=== PATIENT | male | born 1980 ===

== ENCOUNTER 2016-11-28 08:31 | Inpatient (IN) | payer OTHER ==
[2016-11-28] MEDS ORDERED: Sodium Chloride 0.9% 1,000 ML IV ONE (08:46)
--- NOTE | 2016-11-28 08:47 | C.PDOC ---
History Of Present Illness Patient is a 36 y/o male brought to the emergency department by EMS for suspected drug abuse. Pt admits to drug abuse in the ER. Pt appears to be lethargic, but is easily arousable. Otherwise, pt denies any physical complaints at this time. (+) erythema of right LE noted. Pt admits for fall yesterday. Pt admits to using IV "dope" to his right lower leg but not recently. Time Seen by Provider: 11/28/16 08:44 Chief Complaint (Nursing): Substance Abuse History Per: Patient, EMS History/Exam Limitations: no limitations Onset/Duration Of Symptoms: Gradual Current Symptoms Are (Timing): Still Present Suicide/Self Injury Attempted (Context): None Severity: None Pain Scale Rating Of: 0 Associated Symptoms: denies: Suicidal Thoughts, Suicidal Plan Involuntary Hold By: None Recent travel outside of the [place]: No Additional History Per: EMS Past Medical History Reviewed: Historical Data, Nursing Documentation, Vital Signs Vital Signs: Last Vital Signs Temp 98.2 F 11/28/16 08:37 Pulse 84 11/28/16 10:34 Resp 14 11/28/16 10:34 BP 101/64 11/28/16 10:34 Pulse Ox 99 11/28/16 14:21 Family History: States: No Known Family Hx - Social History Hx Alcohol Use: Yes Hx Substance Use: Yes Review Of Systems Except As Marked, All Systems Reviewed And Found Negative. Constitutional: Negative for: Fever, Chills Cardiovascular: Negative for: Chest Pain, Palpitations Respiratory: Negative for: Cough, Shortness of Breath Gastrointestinal: Negative for: Nausea, Vomiting, Abdominal Pain Psych: Negative for: Suicidal ideation Physical Exam - Physical Exam Appears: Non-toxic, No Acute Distress, Other (lethargic) Skin: Warm, Dry, Other (ascending erythema from right foot to gonzales) Head: Atraumatic, Normacephalic Eye(s): bilateral: Normal Inspection, EOMI Nose: Normal Oral Mucosa: Moist Tongue: Normal Appearing Lips: Normal Appearing Throat: Normal Neck: Normal ROM, Supple Chest: Symmetrical, No Tenderness Cardiovascular: Rhythm Regular, No Murmur Respiratory: Normal Breath Sounds, No Rales, No Rhonchi, No Wheezing Gastrointestinal/Abdominal: Soft, No Tenderness Extremity: Tenderness (right foot and right ankle), No Calf Tenderness, Capillary Refill (< 2 sec.), No Deformity, Swelling (right lower leg) Pulses: Left Dorsalis Pedis: Normal, Right Dorsalis Pedis: Normal Neurological/Psych: Oriented x3, Normal Speech, Normal Cognition, Normal Motor, Normal Sensation ED Course And Treatment - Laboratory Results Result Diagrams: 11/28/16 09:19 11/28/16 09:19 Lab Interpretation: Abnormal (+ bands) O2 Sat by Pulse Oximetry: 99 (on RA) Pulse Ox Interpretation: Normal - Other Rad Right foot x-ray X-Ray: Interpreted by Me, Viewed By Me Interpretation: No fracture, or dislocation. Right ankle x-ray X-Ray: Interpreted by Me, Viewed By Me Interpretation: No fracture or dislocation. Progress Note: Labs, right ankle/foot x-ray ordered and reviewed. Pt was given IV fluids, and Vancomycin in the ER. - Physician Consult Information Physician Contacted: Margarito Desouza Jr. Outcome Of Conversation: Pt was seen in ED by Dr. Desouza, pt accepted for regular admission. ED OBSERVATION Date of observation admission: 11/28/16 Time of observation admission: 11:32 - Observation admission statement Patient is being placed in observation because:: opiod intoxication, pending sobriety - Goals of Observation Goals of observation are:: opiod intoxication, pending sobriety - Progress Note Progress Note: 11/28/16 11:34 opiod intoxication, pending sobriety pt is sleeping 11/28/16 13:[address] Desouza who accepted the pt. Disposition Counseled Patient/Family Regarding: Studies Performed, Diagnosis - Disposition Disposition: HOSPITALIZED Disposition Time: 13:45 Condition: STABLE - POA Present On Arrival: Falls Or Trauma - Clinical Impression Clinical Impression: Drug abuse, Cellulitis of right lower leg, Drug dependence - PA / PET TECHNOLOGIST / Resident Statement MD/DO has reviewed & agrees with the documentation as recorded. - Scribe Statement The provider has reviewed the documentation as recorded by the Dennyibshana Rios All medical record entries made by the Dennyibshana were at my direction and personally dictated by me. I have reviewed the chart and agree that the record accurately reflects my personal performance of the history, physical exam, medical decision making, and the department course for this patient. I have also personally directed, reviewed, and agree with the discharge instructions and disposition. Decision To Admit - Pt Status Changed To: Hospital Disposition Of: Inpatient - Admit Certification Admit to Inpatient:: After my assessment, the patient will require hospitalization for at least two midnights. This is because of the severity of symptoms shown, intensity of services needed, and/or the medical risk in this patient being treated as an outpatient. - InPatient: Physician Admission Certification: I certify that this patient requires 2 or more midnights of care for the following reason:: see notes - . Bed Request Type: Regular Admitting Physician: Margarito Desouza Jr. (accepted the pt) Patient Diagnosis: Drug abuse, Cellulitis of right lower leg, Drug dependence
[2016-11-28] MEDS ORDERED: Sodium Chloride 0.9% 1,000 ML ONE (08:52)
[2016-11-28 09:31] LABS: BASO % 0.2 % (0.0-2.0); EOS # 0.1 K/uL (0.0-0.7); HEMATOCRIT 37.7 % (35.0-51.0); LYMPH % 9.2 % (20.0-40.0); MEAN CELL VOLUME 92.2 fL (80.0-94.0); MEAN CORPUSCULAR HEMOGLOBIN 31.2 pg (27.0-31.0); MEAN CORPUSCULAR HGB CONC 33.8 g/dL (33.0-37.0); MEAN PLATELET VOLUME 7.6 fL (7.2-11.7); MONO # 1.2 K/uL (0.0-0.8); MONO % 11.7 % (0.0-10.0); PLATELET COUNT 298 K/uL (130-400); RED CELL DISTRIBUTION WIDTH 13.4 % (11.5-14.5); WHITE BLOOD COUNT 10.3 K/uL (4.8-10.8)
[2016-11-28 09:43] LABS: CHLORIDE 98 mmol/L (98-107); SODIUM 141 mmol/L (132-148)
[2016-11-28 09:45] LABS: GFR AFRICAN-AMERICAN > 60
[2016-11-28 09:46] LABS: ALB/GLOB RATIO 1.1 (1.0-2.1); ALKALINE PHOSPHATASE 91 U/L (38-126); ALT/SGPT 40 U/L (21-72); AST/SGOT 59 U/L (17-59); BLOOD UREA NITROGEN 12 mg/dL (9-20); CALCIUM 9.2 mg/dl (8.6-10.4); CARBON DIOXIDE 30 mmol/L (22-30); GLUCOSE,RANDOM 99 mg/dL (75-110); TOTAL PROTEIN 7.5 g/dL (6.3-8.3)
[2016-11-28 09:47] LABS: ALCOHOL SERUM < 10 mg/dl (0-10)
[2016-11-28 09:55] LABS: NEUTROPHIL 74 % (50-75); TOTAL CELLS COUNTED 100
--- NOTE | 2016-11-28 14:29 | CP.PCM.HP ---
History of Present Illness - History of Present Illness History of Present Illness: Medicine Note for Dr. Desouza CC: right foot pain HPI: 36M with no PMHx presents to the ED with right foot pain x 2 days. Patient reports he hit his foot a few days ago and since then, his foot started to become red and painful. Patient admitted using IV drugs and at times using his right leg for access but denied doing so recently. Patient refused to answer any other ROS questions due to right leg pain. ROS unattainable. PMHx: Denied PSHx: Denied Meds: Denied All: NKDA SHx: Admitted to illicit drug use, social alcohol use, and tobacco use. + opioid , methadone, and benzo on UDS FHx: Unremarkable Present on Admission - Present on Admission Any Indicators Present on Admission: No Past Patient History - Past Social History Smoking Status: Unknown If Ever Smoked - PSYCHIATRIC Hx Substance Use: Yes - SURGICAL HISTORY Hx Surgeries: No - ANESTHESIA Hx Anesthesia: No Meds Allergies/Adverse Reactions: Allergies Allergy/AdvReac Type Severity Reaction Status Date / Time No Known Allergies Allergy Unverified 11/28/16 08:36 Physical Exam - Constitutional Appears: Toxic, No Acute Distress - Head Exam Head Exam: NORMAL INSPECTION, NORMOCEPHALIC - Respiratory Exam Respiratory Exam: Clear to Auscultation Bilateral, NORMAL BREATHING PATTERN. absent: Wheezes - Cardiovascular Exam Cardiovascular Exam: REGULAR RHYTHM, RRR, +S1, +S2 - Extremities Exam Extremities exam: Positive for: normal inspection, pedal edema, tenderness, pedal pulses present Additional comments: Right foot erythematous, edematous, up to mid gonzales - Neurological Exam Neurological exam: Alert, Oriented x3 - Skin Skin Exam: Dry, Intact, Normal Color, Warm Results - Vital Signs Recent Vital Signs: Last Vital Signs Temp 98.2 F 11/28/16 08:37 Pulse 84 11/28/16 10:34 Resp 14 11/28/16 10:34 BP 101/64 11/28/16 10:34 Pulse Ox 99 11/28/16 14:23 - Labs Result Diagrams: 11/28/16 09:19 11/28/16 09:19 Assessment & Plan - Assessment and Plan (Free Text) Assessment: 36M with PMHx of opoid abuse presents to the ED with right foot pain x 2 days Plan: Right Foot Cellulitis * Afebrile, no leukocytosis, left shift with bandemia * Started Vancomycin and Zosyn 11/28/16 * Toradol, Tylenol PRN * NS @ 100cc/hr * F/U ankle and foot xrays --> pending official read * F/U blood cultures Hx Opioid Abuse * Not tachycardic or hypertensive at this time * Monitor * Ativan 1mg IVP Q6H PRN * F/U ECHO Prophylactic Measures * GI PPX: Protonix 40mg PO daily * DVT PPX: Heparin 5000u SC Q12, SCDs contraindicated * Regular Diet * Zofran PRN DW Amber Brannon DO, PGY-1
[2016-11-28] MEDS ORDERED: Sodium Chloride 0.9% 1,000 ML IV SCH (14:45)
[2016-11-28] MEDS: Piperacillin/Tazobact 3.375 GM in Sodium Chloride 100 ML IVPB SCH ×2 (14:53→22:07)
--- NOTE | 2016-11-28 16:29 | RAD ---
HISTORY: cough COMPARISON: No prior. FINDINGS: LUNGS: Poor inspiration with low lung volumes, crowded bronchovascular markings and mild bibasilar atelectasis. Note made of what appear to represent small radiopaque sutures overlying the upper mediastinum and cardiac silhouette. Clinical correlation with surgical history PLEURA: No significant pleural effusion identified, no pneumothorax apparent. CARDIOVASCULAR: Normal. OSSEOUS STRUCTURES: No significant abnormalities. VISUALIZED UPPER ABDOMEN: Normal. OTHER FINDINGS: None. IMPRESSION: Poor inspiration with low lung volumes, crowded bronchovascular markings and mild bibasilar atelectasis
--- NOTE | 2016-11-28 16:32 | RAD ---
PROCEDURE: Right Ankle Radiographs. Ro HISTORY: PAIN COMPARISON: Ovalle made with concurrent radiographs of the right foot. FINDINGS: BONES: No definitive evidence of acute displaced fracture nor dislocation. JOINTS: Normal. No osteoarthritis. Ankle mortise maintained. Talar dome intact SOFT TISSUES: Moderate soft tissue swelling most notably involving the dorsal soft tissues of the foot. There is also mild soft tissue swelling over the medial and lateral malleoli. OTHER FINDINGS: None. IMPRESSION: There is moderate soft tissue swelling most conspicuous involving the dorsal soft tissues. Mild soft tissue swelling overlying the medial and lateral malleoli No definitive evidence of acute displaced fracture nor dislocation. . If symptoms persist or occult fracture suspected clinically recommend repeat radiographs 5-10 days as most fractures should become radiographically evident in this timeframe. Alternatively, consider followup CT scan.
--- NOTE | 2016-11-28 17:06 | RAD ---
PROCEDURE: Right Foot Radiographs. HISTORY: PAIN COMPARISON: Comparison made with concurrent radiographs of the right ankle FINDINGS: BONES: Normal. No evidence of acute displaced fracture nor dislocation. The osseous structures appear grossly intact. No definitive cortical destructive changes seen at this time to suggest osteomyelitis. Note that the possibility of early osteomyelitis cannot be completely excluded. . JOINTS: Normal. SOFT TISSUES: Moderate soft tissue swelling most notably involving the dorsal soft tissues of the foot. Previously described mild soft tissue swelling over the medial and lateral malleoli less well seen on this exam compared to radiographs. OTHER FINDINGS: No IMPRESSION: Moderate soft tissue swelling most notably affecting the dorsal soft tissues. Findings could represent cellulitis. No definitive radiographic evidence of cortical destructive changes to suggest osteomyelitis however early osteomyelitis not excluded. Consider followup three-phase bone scan and or MRI.
[2016-11-29 01:25] VITALS: RESP 20; O2SAT 98
[2016-11-29] MEDS: Piperacillin/Tazobact 3.375 GM in Sodium Chloride 100 ML IVPB SCH (07:05)
--- NOTE | 2016-11-29 07:58 | CP.PCM.PN ---
Subjective - Date & Time of Evaluation Date of Evaluation: 11/29/16 Time of Evaluation: 07:00 - Subjective Subjective: Medicine Note for Dr. Desouza, Patient was seen and examined at bedside. Patient reports his pain is well controlled, ambulating with some difficulty due to the right leg cellulitis, tolerating diet well. Denied fever, chills, headache, chest pain, SOB, abdominal pain, n/v/d/c, or urinary symptoms. Objective - Vital Signs/Intake and Output Vital Signs (last 24 hours): Temp Pulse Resp BP Pulse Ox 98.5 F 72 20 114/73 98 11/29/16 00:15 11/29/16 00:15 11/29/16 00:15 11/29/16 00:15 11/29/16 00:15 - Medications Medications: Current Medications Acetaminophen (Tylenol 325mg Tab) 650 mg PO Q6H PRN PRN Reason: Pain, Mild (1-3) Heparin Sodium (Porcine) (Heparin) 5,000 units SC Q12 [facility] Last Admin: 11/28/16 22:07 Dose: 5,000 units Piperacillin Sod/Tazobactam (Sod 3.375 gm/ Sodium Chloride) 100 mls @ 200 mls/ hr IVPB Q8H [facility] Last Admin: 11/29/16 07:05 Dose: 200 mls/hr Sodium Chloride (Sodium Chloride 0.9%) 1,000 mls @ 100 mls/hr IV .Q10H [facility] Last Admin: 11/28/16 14:54 Dose: 100 mls/hr Vancomycin HCl 1 gm/ Sodium (Chloride) 250 mls @ 166.7 mls/hr IVPB Q24H [facility] Ketorolac Tromethamine (Toradol) 30 mg IVP Q6H PRN PRN Reason: Pain, moderate (4-7) Last Admin: 11/28/16 22:06 Dose: 30 mg Lorazepam (Ativan) 1 mg IVP Q6H PRN PRN Reason: Anxiety Ondansetron HCl (Zofran Inj) 4 mg IVP Q6H PRN PRN Reason: Nausea/Vomiting Pantoprazole Sodium (Protonix Ec Tab) 40 mg PO DAILY [facility] - Constitutional Appears: No Acute Distress - Head Exam Head Exam: NORMAL INSPECTION, NORMOCEPHALIC - Respiratory Exam Respiratory Exam: Clear to Ausculation Bilateral, NORMAL BREATHING PATTERN. absent: Decreased Breath Sounds, Wheezes - Cardiovascular Exam Cardiovascular Exam: REGULAR RHYTHM, RRR, +S1, +S2 - GI/Abdominal Exam GI & Abdominal Exam: Soft, Normal Bowel Sounds. absent: Distended, Tenderness - Extremities Exam Extremities Exam: Tenderness. absent: Pedal Edema Additional comments: Right foot erythematous, edematous, up to mid gonzales, mildly improved since admission - Neurological Exam Neurological Exam: Alert, Awake, Oriented x3 - Skin Skin Exam: Dry, Intact, Normal Color, Warm Assessment and Plan - Assessment and Plan (Free Text) Assessment: 36M with PMHx of opoid abuse presents to the ED with right foot pain x 2 days Plan: Right Foot Cellulitis * Afebrile, no leukocytosis, left shift with bandemia * Started Vancomycin and Zosyn (11/28/16) * Toradol, Tylenol PRN * NS @ 100cc/hr * Ankle xray: There is moderate soft tissue swelling most conspicuous involving the dorsal soft tissues. Mild soft tissue swelling overlying the medial and lateral malleoli No definitive evidence of acute displaced fracture nor dislocation. . If symptoms persist or occult fracture suspected clinically recommend repeat radiographs 5-10 days as most fractures should become radiographically evident in this timeframe. Alternatively, consider followup CT scan. * Foot xrays: Moderate soft tissue swelling most notably affecting the dorsal soft tissues. Findings could represent cellulitis. No definitive radiographic evidence of cortical destructive changes to suggest osteomyelitis however early osteomyelitis not excluded. Consider followup three-phase bone scan and or MRI. * F/U blood cultures Hx Opioid Abuse * Not tachycardic or hypertensive at this time * Monitor * Ativan 1mg IVP Q6H PRN * F/U ECHO Prophylactic Measures * GI PPX: Protonix 40mg PO daily * DVT PPX: Heparin 5000u SC Q12, SCDs contraindicated * Regular Diet * Zofran PRN DW Amber Brannon DO, PGY-1
[2016-11-29 08:19] VITALS: BP 129/69; PULSE 54; TEMP 97.5
[2016-11-29 08:30] LABS: BASO % 0.2 % (0.0-2.0); EOS # 0.2 K/uL (0.0-0.7); EOS % 3.1 % (0.0-4.0); HEMATOCRIT 34.8 % (35.0-51.0); LYMPH # 1.5 K/uL (1.0-4.3); LYMPH % 20.9 % (20.0-40.0); MEAN CELL VOLUME 92.4 fL (80.0-94.0); MEAN CORPUSCULAR HEMOGLOBIN 31.1 pg (27.0-31.0); MEAN CORPUSCULAR HGB CONC 33.7 g/dL (33.0-37.0); MEAN PLATELET VOLUME 7.6 fL (7.2-11.7); MONO # 0.9 K/uL (0.0-0.8); WHITE BLOOD COUNT 7.1 K/uL (4.8-10.8)
[2016-11-29 08:38] LABS: CHLORIDE 104 mmol/L (98-107)
[2016-11-29 08:39] LABS: POTASSIUM 3.4 mmol/L (3.6-5.2); SODIUM 141 mmol/L (132-148)
[2016-11-29 08:41] LABS: ALB/GLOB RATIO 1.1 (1.0-2.1); ALKALINE PHOSPHATASE 91 U/L (38-126); AST/SGOT 72 U/L (17-59); BILIRUBIN,TOTAL 0.8 mg/dL (0.2-1.3); BLOOD UREA NITROGEN 9 mg/dL (9-20); CARBON DIOXIDE 27 mmol/L (22-30); CHOLESTEROL 156 mg/dL (0-199); GFR AFRICAN-AMERICAN > 60; GLUCOSE,RANDOM 93 mg/dL (75-110); TOTAL PROTEIN 6.2 g/dL (6.3-8.3)
[2016-11-29 08:42] LABS: ALT/SGPT 48 U/L (21-72); CALCIUM 8.5 mg/dl (8.6-10.4); MAGNESIUM 1.8 mg/dL (1.6-2.3); PHOSPHOROUS 3.8 mg/dL (2.5-4.5)
[2016-11-29] MEDS ORDERED: Pantoprazole 40 mg EC Tab PO SCH (10:00)
[2016-11-29] MEDS ORDERED: Potassium Chloride 20 mEq ER Tab PO ONE (12:00)
--- NOTE | 2016-11-29 13:03 | CP.PCM.DIS ---
Provider - Provider Date of Admission: 11/28/16 14:00 Attending physician: Margarito Desouza Jr, MD Time Spent in preparation of Discharge (in minutes): 35 Hospital Course - Lab Results Lab Results: Most Recent Lab Values WBC 7.1 K/uL (4.8-10.8) 11/29/16 08:09 RBC 3.76 Mil/uL (4.40-5.90) L 11/29/16 08:09 Hgb 11.7 g/dL (12.0-18.0) L 11/29/16 08:09 Hct 34.8 % (35.0-51.0) L 11/29/16 08:09 MCV 92.4 fL (80.0-94.0) 11/29/16 08:09 MCH 31.1 pg (27.0-31.0) H 11/29/16 08:09 MCHC 33.7 g/dL (33.0-37.0) 11/29/16 08:09 RDW 13.0 % (11.5-14.5) 11/29/16 08:09 Plt Count 248 K/uL (130-400) 11/29/16 08:09 MPV 7.6 fL (7.2-11.7) 11/29/16 08:09 Neut % (Auto) 62.8 % (50.0-75.0) 11/29/16 08:09 Lymph % (Auto) 20.9 % (20.0-40.0) 11/29/16 08:09 [place] % (Auto) 13.0 % (0.0-10.0) H 11/29/16 08:09 Eos % (Auto) 3.1 % (0.0-4.0) 11/29/16 08:09 Baso % (Auto) 0.2 % (0.0-2.0) 11/29/16 08:09 Neut # 4.4 K/uL (1.8-7.0) 11/29/16 08:09 Lymph # 1.5 K/uL (1.0-4.3) 11/29/16 08:09 [place] # 0.9 K/uL (0.0-0.8) H 11/29/16 08:09 Eos # 0.2 K/uL (0.0-0.7) 11/29/16 08:09 Baso # 0.0 K/uL (0.0-0.2) 11/29/16 08:09 Neutrophils % (Manual) 74 % (50-75) 11/28/16 09:19 Band Neutrophils % 4 % (0-2) H 11/28/16 09:19 Lymphocytes % (Manual) 13 % (20-40) L 11/28/16 09:19 Monocytes % (Manual) 9 % (0-10) 11/28/16 09:19 Platelet Estimate Normal (NORMAL) 11/28/16 09:19 RBC Morphology Normal 11/28/16 09:19 Sodium 141 mmol/L (132-148) 11/29/16 08:09 Potassium 3.4 mmol/L (3.6-5.2) L 11/29/16 08:09 Chloride 104 mmol/L (98-107) 11/29/16 08:09 Carbon Dioxide 27 mmol/L (22-30) 11/29/16 08:09 Anion Gap 13 (10-20) 11/29/16 08:09 BUN 9 mg/dL (9-20) 11/29/16 08:09 Creatinine 0.7 MG/DL (0.8-1.5) L 11/29/16 08:09 Est GFR ( Amer) > 60 11/29/16 08:09 Est GFR (Non-Af Amer) > 60 11/29/16 08:09 Random Glucose 93 mg/dL (75-110) 11/29/16 08:09 Hemoglobin A1c 5.5 % (4.2-6.5) 11/28/16 15:54 Calcium 8.5 mg/dl (8.6-10.4) L 11/29/16 08:09 Phosphorus 3.8 mg/dL (2.5-4.5) 11/29/16 08:09 Magnesium 1.8 mg/dL (1.6-2.3) 11/29/16 08:09 Total Bilirubin 0.8 mg/dL (0.2-1.3) 11/29/16 08:09 AST 72 U/L (17-59) H D 11/29/16 08:09 ALT 48 U/L (21-72) 11/29/16 08:09 Alkaline Phosphatase 91 U/L (38-126) 11/29/16 08:09 Total Protein 6.2 g/dL (6.3-8.3) L 11/29/16 08:09 Albumin 3.2 g/dL (3.5-5.0) L 11/29/16 08:09 Globulin 3.0 gm/dL (2.2-3.9) 11/29/16 08:09 Albumin/Globulin Ratio 1.1 (1.0-2.1) 11/29/16 08:09 Triglycerides 79 mg/dL (0-149) 11/29/16 08:09 Cholesterol 156 mg/dL (0-199) 11/29/16 08:09 LDL Cholesterol Direct 101 mg/dL (0-129) 11/29/16 08:09 HDL Cholesterol 39 mg/dL (30-70) 11/29/16 08:09 TSH 3rd Generation 0.49 mIU/L (0.46-4.68) 11/28/16 15:54 Urine Opiates Screen Positive (NEGATIVE) 11/28/16 09:42 Urine Methadone Screen Positive (NEGATIVE) 11/28/16 09:42 Ur Barbiturates Screen Negative (NEGATIVE) 11/28/16 09:42 Ur Phencyclidine Scrn Negative (NEGATIVE) 11/28/16 09:42 Ur Amphetamines Screen Negative (NEGATIVE) 11/28/16 09:42 U Benzodiazepines Scrn Positive (NEGATIVE) 11/28/16 09:42 U Oth Cocaine Metabols Negative (NEGATIVE) 11/28/16 09:42 U Cannabinoids Screen Negative (NEGATIVE) 11/28/16 09:42 Alcohol, Quantitative < 10 mg/dl (0-10) 11/28/16 09:19 - Hospital Course Hospital Course: Upon Admission: CC: right foot pain HPI: 36M with no PMHx presents to the ED with right foot pain x 2 days. Patient reports he hit his foot a few days ago and since then, his foot started to become red and painful. Patient admitted using IV drugs and at times using his right leg for access but denied doing so recently. Patient refused to answer any other ROS questions due to right leg pain. ROS unattainable. PMHx: Denied PSHx: Denied Meds: Denied All: NKDA SHx: Admitted to illicit drug use, social alcohol use, and tobacco use. + opioid , methadone, and benzo on UDS FHx: Unremarkable Throughout Hospital Course: Right Foot Cellulitis * Afebrile, no leukocytosis, left shift with bandemia * Started Vancomycin and Zosyn (11/28/16) * Toradol, Tylenol PRN * NS @ 100cc/hr * Ankle xray: There is moderate soft tissue swelling most conspicuous involving the dorsal soft tissues. Mild soft tissue swelling overlying the medial and lateral malleoli No definitive evidence of acute displaced fracture nor dislocation. . If symptoms persist or occult fracture suspected clinically recommend repeat radiographs 5-10 days as most fractures should become radiographically evident in this timeframe. Alternatively, consider followup CT scan. * Foot xrays: Moderate soft tissue swelling most notably affecting the dorsal soft tissues. Findings could represent cellulitis. No definitive radiographic evidence of cortical destructive changes to suggest osteomyelitis however early osteomyelitis not excluded. Consider followup three-phase bone scan and or MRI Patient instructed to take Clindamycin three times a day for 7 days and to follow up with his PMD. This is a brief summary of the patient's hospital course. Please review EMR for full record. Discharge Exam - Head Exam Head Exam: NORMAL INSPECTION, NORMOCEPHALIC - Eye Exam Eye Exam: Normal appearance - ENT Exam ENT Exam: Mucous Membranes Moist - Respiratory Exam Respiratory Exam: Clear to PA & Lateral, NORMAL BREATHING PATTERN. absent: Wheezes - Cardiovascular Exam Cardiovascular Exam: REGULAR RHYTHM, RRR, +S1, +S2 - GI/Abdominal Exam GI & Abdominal Exam: Normal Bowel Sounds, Soft. absent: Distended, Tenderness - Extremities Exam Extremities exam: normal inspection, pedal pulses present - Neurological Exam Neurological exam: Alert, Oriented x3 - Skin Skin Exam: Dry, Intact, Normal Color, Warm Discharge Plan - Discharge Medications Prescriptions: Clindamycin [Cleocin] 300 mg PO TID 7 Days - Follow Up Plan Condition: STABLE Disposition: HOME/ ROUTINE Instructions: Cellulitis (DC), Narcotic Abuse (DC), Regular Diet (DC), Cellulitis (GEN) Additional Instructions: Patient instructed to take Clindamycin 300mg three times a day by mouth for 7 days and to follow up with his PMD within 1 week. Patient instructed to return to the ED if his symptoms worsen or return. Referrals: Margarito Desouza Jr., MD [Medical Doctor] - 1 Week
== END 2016-11-29 13:49 | disposition home or self-care (01) | DRG 277 ==
LOC: C.ER 08:31 → C.9OBSV 11:31 → OBSVTOIN 14:00 → C.9E 15:05 → C.6T 16:06
PROVIDERS: ADMIT Internal Medicine; ATTEND Internal Medicine
DX: L03.115 Cellulitis of right lower limb (principal); F11.20 Opioid dependence, uncomplicated; D72.825 Bandemia